=== PATIENT | male | born 1990 | race Caucasian/White ===

== ENCOUNTER 2020-12-02 19:23 | Emergency (ER) | payer SELFPAY ==
[2020-12-02] MEDS ORDERED: CEFAZOLIN 2 GM/D5W RTU 2 GM/50 ML RTUPB IV ONE ×2 (21:07→23:42)
[2020-12-02] MEDS ORDERED: VANCOMYCIN HCL INJ 1000 MG VIAL IV ONE (21:07)
--- NOTE | 2020-12-02 21:12 | ER Document Report ---
ED Medical Screen (RME) - General Chief Complaint: Leg Swelling Stated Complaint: SWOLLEN LEG/HAND Time Seen by Provider: 12/02/20 21:00 Mode of Arrival: Ambulatory Information source: Patient - HPI Patient complains to provider of: Right knee pain, leg pain, redness Notes: 12/02/20 21:10 Patient with complaints of right knee pain with right leg redness and swelling. The patient states that he noticed some mild redness to his right anterior knee few days ago. He was seen at urgent care and was given a shot of antibiotics and was discharged home on doxycycline. Today he noticed that the redness and swelling has gotten significantly worse and now his entire right leg from the knee down is red swollen and painful. No fevers. He denies IV drug use. He denies any traumatic injury. Exam: Nontoxic, no distress. Lungs clear throughout. Heart sounds normal. Patient with nearly full range of motion of the right knee. There is redness to the anterior aspect of the right knee which is hot to touch with swelling. He is noted to have swelling from the knee down as well. Normal pulses and sensation distally. Compartments are soft. No drainable abscess identified. An initial examination was made on the patient as part of the triage process, and it was determined a more comprehensive evaluation was necessary. Initial orders were placed and patient was transferred to another provider in the ED who assumed care and finished evaluation and plan. - Related Data Allergies/Adverse Reactions: No Known Allergies Allergy (Unverified 12/02/20 21:04) Home Medications: antibiotics Past Medical History - Social History Chew tobacco use (# tins/day): No Frequency of alcohol use: Occasional Drug Abuse: None Physical Exam - Vital signs Vitals: Temp Pulse Resp BP Pulse Ox 98.8 F 76 16 119/45 L 100 12/02/20 19:29 12/02/20 19:29 12/02/20 19:29 12/02/20 19:29 12/02/20 19:29 Course - Vital Signs Vital signs: Temp Pulse Resp BP Pulse Ox 98.8 F 76 16 119/45 L 100 12/02/20 19:29 12/02/20 19:29 12/02/20 19:29 12/02/20 19:29 12/02/20 19:29
[2020-12-02 21:46] LABS: ABSOLUTE EOSINOPHILS # (AUTO) 0.5 10^3/uL (0.0-0.6); ABSOLUTE LYMPHOCYTES (AUTO) 2.6 10^3/uL (0.5-4.7); ABSOLUTE MONOCYTES (AUTO) 0.7 10^3/uL (0.1-1.4); ABSOLUTE NEUT (AUTO) 4.1 10^3/uL (1.7-8.2); BASOPHILS % (AUTO) 0.6 % (0-2); EOSINOPHILS % (AUTO) 6.5 % (0-6); HEMATOCRIT 37.4 % (37.9-51.0); HEMOGLOBIN 13.5 g/dL (13.5-17.0); MEAN CORPUSCULAR HEMOGLOBIN 32.1 pg (27.0-33.4); MEAN CORPUSCULAR HGB CONC 36.2 g/dL (32.0-36.0); MEAN CORPUSCULAR VOLUME 89 fl (80-97); MONOCYTES % (AUTO) 8.7 % (3-13); PLATELET COUNT 246 10^3/uL (150-450); RED BLOOD COUNT 4.22 10^6/uL (4.35-5.55); RED CELL DISTRIBUTION WIDTH 13.1 % (11.5-14.0); SEGMENTED NEUTROPHILS % (AUTO) 51.2 % (42-78); TOTAL CELLS COUNTED % (AUTO) 100 %
--- NOTE | 2020-12-02 22:01 | RADIOLOGY REPORT (SQ) ---
EXAM DESCRIPTION: XR KNEE 4 OR MORE VIEWS COMPLETED DATE/TME: 12/02/2020 21:24 CLINICAL HISTORY: 30 years, Male, Right knee redness, swelling, pain COMPARISON: None. NUMBER OF VIEWS: 4 TECHNIQUE: 4 views of the right knee LIMITATIONS: None. FINDINGS: Negative for acute fracture or dislocation. Prepatellar soft tissue swelling. No joint effusion IMPRESSION: Prepatellar soft tissue swelling copyright 2010 [employer]- All Rights Reserved
[2020-12-02 22:06] LABS: ALBUMIN 3.4 g/dL (3.5-5.0); ALKALINE PHOSPHATASE 80 U/L (38-126); ANION GAP 5 (5-19); ASPARTATE AMINO TRANSFERASE 22 U/L (17-59); BILIRUBIN,DIRECT 0.2 mg/dL (0.0-0.4); BILIRUBIN,TOTAL 0.4 mg/dL (0.2-1.3); BLOOD UREA NITROGEN 15 mg/dL (7-20); C-REACTIVE PROTEIN 72.7 mg/L (<10.0); CALCIUM 8.8 mg/dL (8.4-10.2); CARBON DIOXIDE 29 mmol/L (22-30); CHLORIDE 102 mmol/L (98-107); GLUCOSE 121 mg/dL (75-110); TOTAL PROTEIN 5.8 g/dL (6.3-8.2)
[2020-12-02 22:22] LABS: ERYTHROCYTE SEDIMENTATION RATE 29 mm/hr (0-15)
--- NOTE | 2020-12-02 22:30 | RADIOLOGY REPORT (SQ) ---
EXAM DESCRIPTION: US EXTREMITY VEINS UNILATERAL COMPLETED DATE/TME: 12/02/2020 22:01 CLINICAL HISTORY: 30 years, Male, right leg swelling COMPARISON: None. TECHNIQUE: Transverse and longitudinal sonographic images of the right lower extremity deep venous system LIMITATIONS: None. FINDINGS: No visible areas of thrombus. Normal compression and augmentation throughout. Doppler images are unremarkable IMPRESSION: Negative exam copyright 2010 [employer]- All Rights Reserved
--- OUTSIDE RECORDS SUMMARY | 2020-12-02 22:53 | XMS REPORT ---
:1990 [facility] Address [address] [address] Care Team Providers Name Role Phone Unavailable Unavailable Unavailable Allergies, Adverse Reactions, Alerts This patient has no known allergies or adverse reactions. Medications This patient has no known medications. Problems This patient has no known problems. Procedures Procedure Date / Time Performed Performing Clinician Sunshine lopez pulse oximetry (PROC) 2020-09-21 00:00:00 Results Test Description Test Time Test Comments Text Results Atomic Results Result Comments SARS coronavirus 2 Ag [Presence] in Respiratory specimen by 2020-09-21 18:30:12 Rapid immunoassay Test Item Value Reference Range Comments RAPID Nasal Covid (test code = RAPID Nasal Covid) negative Assessments Condition Name Status Diagnosis Date Treating Clinici an Suspected COVID-19 Active 2020-09-21 18:51:23 Encounters Start End Encounter Admission Attending Care Care Encounter Date/Time Date/Time Type Type Clinicians Facility Department ID 2020-09-21 2020-09-21 Alyson GenieDB [id number] 00:00:00 00:00:00 Alberto, Immediate Immediate & [id number] [employer]: [facility] [place] [address], Ph. Social History Smoking Status Start Date Stop Date Unknown If Ever Smoked Vital Signs Vital Name Observation Time Observation Value Comments BMI (Body Mass Index) 2020-09-21 00:00:00 24.3 kg/m2 BP Systolic 2020-09-21 00:00:00 116 mm[Hg] Body Weight 2020-09-21 00:00:00 160 [lb_av] BP Diastolic 2020-09-21 00:00:00 74 mm[Hg] Height 2020-09-21 00:00:00 68 [in_i] Hospital Discharge Instructions 1. Suspected COVID-19 pulse oximetry (PROC) rapid SARS CoV 2 Ag, QL IA, respiratory specimen rapid flu (A+B) rapid strep group A, throat Discussion Note Face to face time spent with patient was 15 mins, with >50% of that time spent counseling the patient, discussing the risk and benefits of treatment and family education. Follow up with PCP in 1 week or sooner for new/worsening symptoms. All pt. questions and concerns were addressed and answered. Pt. verbalized understanding and agreement of treatment plan. This was an Urgent Care Visit. Quality measures managed by PCP. After performing a Medical Screening Examination, I estimate there is MODERATE risk for future respiratory decompensation and onset of acute respiratory distress however there is currently LOW risk for AIRWAY COMPROMISE, ANAPHYLAXIS, CELLULITIS, EPIGLOTTIS, or NECROTIZING FASCIITIS, thus I consider the discharge disposition reasonable. Also, there is no evidence of peritonitis, sepsis, or toxicity. The patientand I have discussed the diagnosis and risks, and we agree with discharging home with close follow-up with the understanding that symptoms and presentations can change. We also discussed returning to the Office immediately or go directly to the ED if new or worsening symptoms occur. We have discussed t he symptoms which are most concerning (e.g., difficulty breathing or swallowing, worsening fever, changing or worsening pain) that necessitate immediate presentation to the ED. Patient educational handouts: No information available.
--- NOTE | 2020-12-02 23:04 | ER Document Report ---
ED General - General Chief Complaint: Leg Swelling Stated Complaint: SWOLLEN LEG/HAND Time Seen by Provider: 12/02/20 21:00 Primary Care Provider: MATTHEW MALDONADO DO [ACTIVE STAFF] - Follow up as needed Mode of Arrival: Ambulatory - [facility] Notes: Patient is a 30-year-old male who presents emergency department for evaluation of right knee pain and swelling. He initially started with right knee redness and swelling on Monday. He was seen in urgent care. He believes that, with his history of psoriasis, small "scuff" had caused an infection, so he was started on doxycycline, given a "shot" of antibiotics. He states that since then his pain and swelling had become significantly worse. He has pain in his knee and it tracks down into his lower leg. He has significant swelling. No fevers or chills. No nausea or vomiting. He is eating and drinking normally. He denies any history of MRSA. - Related Data Allergies/Adverse Reactions: No Known Allergies Allergy (Unverified 12/02/20 21:04) Home Medications: antibiotics Past Medical History - General Information source: Patient - Social History Smoking Status: Current Every Day Smoker Chew tobacco use (# tins/day): No Frequency of alcohol use: Occasional Drug Abuse: None Family History: Reviewed & Not Pertinent Skin Medical History: Reports Hx Psoriasis Review of Systems - Review of Systems Constitutional: No symptoms reported EENT: No symptoms reported Cardiovascular: No symptoms reported Respiratory: No symptoms reported Gastrointestinal: No symptoms reported Genitourinary: No symptoms reported Musculoskeletal: See HPI Skin: See HPI Neurological/Psychological: No symptoms reported Physical Exam - Vital signs Vitals: Temp Pulse Resp BP Pulse Ox 98.8 F 76 16 119/45 L 100 12/02/20 19:29 12/02/20 19:29 12/02/20 19:29 12/02/20 19:29 12/02/20 19:29 - Notes Notes: This is a 30-year-old male who appears stated age in no acute distress. Vital signs reviewed, please refer to chart. Head is normocephalic, atraumatic. Pupils equal round, reactive to light. Neck is supple without meningismus. Heart is regular rate and rhythm. Lungs are clear to auscultation bilaterally. Abdomen is soft, nontender, normoactive bowel sounds throughout. Examination of the right lower extremity yields a moderate amount of edema and erythema to the right knee with edema and erythema tracking down the lateral aspect of the knee. He is neurovascularly intact distally. Obvious prepatellar edema. Some psoriatic changes noted to the skin of the anterior knee, no other skin changes noted. Course - Re-evaluation Re-evalutation: 12/02/20 23:03 Patient presents emergency department for evaluation. He had laboratory vesication's as ordered through triage. His x-ray fails to show any large effusion, but given the amount of edema that he has I am concerned about the possibility of an infection inside the joint. Patient had laboratory vesication showed a markedly elevated CRP without any signs of significant leukocytosis. I discussed the possibility of intra-articular infection with the patient. The procedure of an arthrocentesis was explained in great detail, patient has consented. We will continue to monitor. 12/03/20 05:08 Patient's joint fluid fails to show any signs of significant intra-articular infection. Synovial fluid culture is still pending. I discussed results with Dr. Maldonado. He agrees with outpatient management. I also discussed changing his antibiotic from doxycycline to both Keflex and Bactrim. He was in agreement will follow up with him in the office. He is to return to the ED with worsening. - Vital Signs Vital signs: Temp Pulse Resp BP Pulse Ox 98.8 F 76 16 119/45 L 100 12/02/20 19:29 12/02/20 19:29 12/02/20 19:29 12/02/20 19:29 12/02/20 19:29 - Laboratory Results Result Diagrams: 12/02/20 21:30 12/02/20 21:30 Laboratory Results Interpreted: 12/02/20 12/02/20 21:30 21:30 RBC 4.22 L Hct 37.4 L MCHC 36.2 H Eos % (Auto) 6.5 H ESR 29 H Sodium 136.1 L Glucose 121 H C-Reactive Protein 72.7 H Total Protein 5.8 L Albumin 3.4 L Critical Laboratory Results Reviewed: No Critical Results - Radiology Results Radiology Results Interpreted: 12/02/20 23:04 Knee X-Ray 12/02/20 21:07 IMPRESSION: Prepatellar soft tissue swelling copyright 2011 [employer]- All Rights Reserved Venous Doppler Study 12/02/20 21:07 IMPRESSION: Negative exam copyright 2010 [employer]- All Rights Reserved Critical Radiology Results Reviewed: No Critical Results Procedures - Joint Aspiration Right Knee Time completed: 00:32 Consent obtained: Yes Joint aspiration pre-procedure: Sterile PPE donned, Chloraprep applied Anesthetic type: 2% Lidocaine mL's of anesthetic: 5 Needle size: 18 Amount/type of drainage: Clear, yellow fluid, small tinge of blood Number of attempts: 1 Complications: No Notes: The procedure was explained in great detail. Consent was signed and placed on the chart. Using sterile technique, I did infiltrate approximately 5 cc of 2% lidocaine into the lateral aspect of the right knee, being careful to avoid any overlying cellulitic appearing tissues. Once adequate anesthesia was achieved, the area was prepped and draped in usual sterile fashion, and an 18-gauge needle was advanced using the parapatellar approach, with aspiration ongoing, with aspiration of approximately 5 cc of clear/yellow synovial fluid. There was a small blood-tinged noted with aspiration. The needle was withdrawn, the area was cleansed again and bandage applied. Patient tolerated the procedure well. Discharge - Discharge Clinical Impression: Cellulitis of left knee Condition: Stable Disposition: HOME, SELF-CARE Instructions: Cellulitis (OM) Additional Instructions: It does not appear at this time that the infection has spread into your joint. A culture has been sent, and you will be contacted if bacteria grow. Otherwise, stop the doxycycline, start taking Keflex and Bactrim as directed. Keep your leg elevated. Follow-up with our on-call orthopedic surgeon, listed below. Call his office today to make an appointment. If you develop fevers, increased pain, vomiting, shortness of breath, or any other new or concerning symptoms, please return immediately to the emergency department for evaluation. Prescriptions: Sulfamethoxazole/Trimethoprim [Bactrim Ds Tablet] 1 each PO BID #14 tablet Cephalexin Monohydrate [Keflex 500 mg Capsule] 500 mg PO TID #21 capsule Referrals: MATTHEW MALDONADO DO [ACTIVE STAFF] - Follow up as needed
[2020-12-02] MEDS ORDERED: LIDOCAINE 2% INJ (20 MG/ML) 20 ML MDV INJ ONE (23:30)
[2020-12-02] MEDS ORDERED: VANCOMYCIN HCL INJ 1000 MG VIAL ONE (23:42)
[2020-12-03] MEDS ORDERED: KETOROLAC TROMETHAMINE INJ/PF 30 MG/1 ML SDV IV ONE (00:41)
[2020-12-03 02:16] LABS: CALCIUM PYROPHOSPHATE CRYSTALS NONE OBSERVED; MONOSODIUM URATE CRYSTALS NONE OBSERVED; OTHER CRYSTALS NONE OBSERVED
[2020-12-03 02:25] LABS: FLUID SOURCE KNEE; FLUID TYPE SYNOVIAL
[2020-12-03 02:26] LABS: FLUID APPEARANCE SLIGHTLY HAZY; FLUID COLOR STRAW
[2020-12-03 03:45] LABS: FLUID VISCOSITY HIGHLY VISCOUS
[2020-12-03 05:44] VITALS: BP 122/78
== END 2020-12-03 06:09 | disposition home or self-care (01) ==
LOC: ER 19:23
DX: L03.116 Cellulitis of left lower limb (principal); M25.561 Pain in right knee; F17.200 Nicotine dependence, unspecified, uncomplicated
CPT/HCPCS: 99285; 96375; 96365; 96366; 96367; 36415; 87040; 87205; 87070; 83605; 85025; 85652; 89050; 89060; 87075; 86140; 80053; 88162; 93971; 73564; 20610; J3490; J1885; J3370; J0690